=== PATIENT | female | born 2000 | race Two or more races ===

== ENCOUNTER 2020-11-24 13:22 | Emergency (ER) | payer BC ==
[~2020-11-24] VITALS: Ht 157.5 cm; Wt 51.7 kg
[2020-11-24] MEDS ORDERED: JUNEL FE 1 MG-1 EACH PO (14:14)
[2020-11-24] MEDS ORDERED: BENADRYL ALLERG25 MG PO (18:55)
[2020-11-24] MEDS ORDERED: DUI500 PO (18:55)
[2020-11-24] MEDS ORDERED: MEDROLPACK PO (18:55)
== END 2020-11-24 19:16 | disposition home or self-care (01) ==
LOC: ER 13:22
DX: L53.0 Toxic erythema (principal); R60.0 Localized edema; T63.441A Toxic effect of venom of bees, accidental (unintentional), initial encounter; Y92.89 Other specified places as the place of occurrence of the external cause